=== PATIENT | female | born 1960 | race Caucasian/White ===

== ENCOUNTER → 2018-02-14 12:22 | Outpatient (CLI) | payer BC, SELFPAY ==
[2018-02-14 14:04] VITALS: PULSE 75; PULSE 80
== END ==
PROVIDERS: Family Provider Internal Medicine; PCP Internal Medicine; Visit Provider Internal Medicine
DX: E66.01 Morbid (severe) obesity due to excess calories (principal)
CPT/HCPCS: 94060; 94640; 94726; 94729

== ENCOUNTER → 2018-05-05 11:55 | Outpatient (CLI) | payer BC, SELFPAY ==
--- NOTE | 2018-05-05 12:00 | XR_ITS ---
XR chest 2V HISTORY: ITS.REASON: PERSISTANT COUGH, ATYPICAL CHEST PAIN ORDERING PHYSICIAN: Facundo Antonio PATIENT AGE: 58 years Technique: PA and lateral chest COMPARISON: None available FINDINGS: Lungs are well expanded and clear with nothing definitely acute The cardiomediastinal silhouette and pulmonary vascularity are within normal limits. The lungs are clear without infiltrates, suspicious nodules, or pleural effusions. Minor density at the apex of the heart is most likely anterior fat pad. No pleural effusions. No pneumothorax. No acute bony abnormalities. Minor anterior marginal osteophytes throughout the T-spine IMPRESSION: . Negative chest. Nothing definitely acute.
== END ==
PROVIDERS: PCP Internal Medicine; Visit Provider Internal Medicine
DX: R05 Cough (principal); R07.89 Other chest pain
CPT/HCPCS: 71046

== ENCOUNTER → 2018-09-01 10:24 | Outpatient (CLI) | payer BC, SELFPAY ==
--- NOTE | 2018-09-01 10:26 | XR_ITS ---
XR knee RT 4V Ordering Physician: Gabbi Sal MD Patient Age: 58 years: Female HISTORY: ITS.REASON: Rt knee pain Right knee pain. . Technique: Weightbearing AP, lateral and Knox views were performed as well as oblique. No previous studies for comparison Findings: Marked Narrowing medial compartment reflecting osteophytic changes here. Sclerosis on both sides the joint. With near [id number] appearance on AP standing images today. Tricompartmental marginal osteophytes most evident about medial and lateral compartment.. Upper normal joint fluid suprapatella bursa. Small flabella accessory ossicle posteriorly . Impression: Osteoarthritis right knee most pronounced and severe at the medial compartment
== END ==
PROVIDERS: PCP Internal Medicine; Visit Provider Orthopaedic Surgery
DX: M25.561 Pain in right knee (principal); G89.29 Other chronic pain
CPT/HCPCS: 73564

== ENCOUNTER → 2019-09-27 08:57 | Outpatient (CLI) | payer BC, SELFPAY ==
--- NOTE | 2019-09-27 09:00 | MM_ITS ---
PROCEDURE: MM DIG SCREENING MAMM BI W/CAD CLINICAL INDICATION: SCREENING There is a history of breast cancer patient's maternal aunt. COMPARISON: DMSB DIG MAMM-SCREEN PERLA from 11/04/2015 DMSB DIG MAMM-SCREEN PERLA W/CAD from 08/04/2017 TECHNIQUE: Standard CC and MLO images were obtained. Artie images were performed FINDINGS: Moderate diffuse scattered fibroglandular densities are seen throughout both breast and the findings of bilateral and symmetrical. There is a mole marker right breast. There is no new or suspicious lesion in either breast and no suspicious microcalcifications. Artie images were reviewed showing no abnormality. IMPRESSION: Moderate diffuse breast density with no suspicious lesions seen BI-RAD Category: 1 Negative FOLLOW-UP: 1YR 1 Year Follow-up (A letter has been sent to the patient regarding results of the study.) Dictated by: Dr. Dima Martinez MD 10/02/2019 08:[address] Dima Martinez MD in [place] 10/02/2019 08:56
== END ==
PROVIDERS: PCP Internal Medicine; Visit Provider Internal Medicine
DX: Z12.31 Encounter for screening mammogram for malignant neoplasm of breast (principal)
CPT/HCPCS: 77063; 77067

== ENCOUNTER → 2020-07-23 11:42 | Outpatient (CLI) | payer BC, SELFPAY | PROVIDERS: PCP Internal Medicine; Visit Provider Internal Medicine | DX: Z20.828 Contact with and (suspected) exposure to other viral communicable diseases (principal); U07.1 COVID-19 | CPT/HCPCS: U0003 ==

== ENCOUNTER 2020-09-11 16:00 | Outpatient (RCR) | payer BC, SELFPAY | END 2020-09-11 16:05 | disposition home or self-care (01) | LOC: PT 16:00 | PROVIDERS: PCP Internal Medicine; Visit Provider Physician Assistant | DX: M25.561 Pain in right knee (principal); Z96.651 Presence of right artificial knee joint | CPT/HCPCS: 97010; 97014; 97110; 97140; 97163; G0283 ==

== ENCOUNTER → 2021-05-20 09:41 | Outpatient (CLI) | payer BC, SELFPAY | PROVIDERS: PCP Internal Medicine; Visit Provider Internal Medicine | DX: Z20.822 Contact with and (suspected) exposure to COVID-19 (principal) | CPT/HCPCS: C9803; U0003; U0005 ==

== ENCOUNTER → 2021-06-11 10:39 | Outpatient (CLI) | payer BC, SELFPAY ==
--- NOTE | 2021-06-11 10:41 | MM_ITS ---
PROCEDURE INFORMATION: Exam: MG Bilateral Screening 3D Mammography Exam date and time: 06/11/2021 10:41 AM Age: 61 years old Clinical indication: Encounter for screening mammogram for malignant neoplasm of breast TECHNIQUE: Imaging protocol: Bilateral screening tomosynthesis and 2D mammography including computer-aided detection (CAD) when performed. COMPARISON: No relevant prior studies available. FINDINGS: MAMMOGRAPHY: Breast composition: The breast tissue is composed of scattered areas of fibroglandular density. Mass: None. Architectural distortion: None. Calcifications: No suspicious calcifications. Asymmetric density: None. Skin thickening: None. Axillary adenopathy: None. IMPRESSION: No mammographic evidence of malignancy. Annual screening is recommended unless otherwise clinically indicated. ASSESSMENT: BI-RADS Category 1: Negative
== END ==
PROVIDERS: PCP Internal Medicine; Visit Provider Internal Medicine
DX: Z12.31 Encounter for screening mammogram for malignant neoplasm of breast (principal)
CPT/HCPCS: 77063; 77067

== ENCOUNTER 2021-06-13 11:34 | Emergency (ER) | payer BC, SELFPAY ==
[2021-06-13 11:50] VITALS: BP 140/83; PULSE 654; RESP 16; TEMP 37.1; O2SAT 95; BMI 31.4
[2021-06-13 12:05] VITALS: BP 140/83; PULSE 65; RESP 18; TEMP 37.1
--- NOTE | 2021-06-13 12:14 | HMH.EDUTC ---
[facility] [place] Disposition Clinical Impression: Exposure to COVID-19 virus Sinusitis Qualifiers: Sinusitis location: unspecified location Chronicity: acute Recurrence: non-recurrent Qualified Code(s): J01.90 - Acute sinusitis, unspecified Disposition: Home, Self-Care Condition on Discharge: Good Instructions: DI for Sinusitis, Preventing the Spread of Coronavirus Discharge Instructions Additional Instructions: Drink plenty of fluids. Take tylenol or ibuprofen for pain or fever. Take the medications as directed. Follow up with your regular doctor. GO TO THE ER FOR ANY WORSENING SYMPTOMS Quarantine until you know the results of your covid-19 test. If it is positive, the health department should call you and give you further instructions about your length of Quarantine and other things. Notify your school or workplace of your results and follow their instructions regarding return to work/school. The cough medication (promethazine dm) will make you drowsy, so don't drive or operate heavy machinery after taking it. The tessalon perles should not make you drowsy, so you could take it during the day. Prescriptions: Promethazine/Dextromethorphan [Promethazine-Dm Syrup] 5 ml PO Q6HP PRN #240 ml PRN Reason: Cough Transmission Status: Received by [id number] predniSONE [Deltasone 10mg tablet] 10 mg PO BID 3 Days #6 tab Transmission Status: Received by [id number] Benzonatate [Tessalon Perle 100mg Cap] 100 mg PO TIDP PRN #30 cap PRN Reason: Cough Transmission Status: Received by [id number] Azithromycin [Z-Dwayne 250mg Tab*] 250 mg PO UD DOSE PK #6 tab Transmission Status: Received by [id number] Referrals: Facundo Antonio [Primary Care Provider] - Time of Disposition: 12:27 Medical Decision Making - Medical Records Medical records reviewed: No: I reviewed the patient's medical records. - Alexandre Inquiry Pt receiving controlled substance: No Vital Signs: 06/13/21 11:50 06/13/21 12:05 Temperature 98.7 F 98.7 F Temperature Source Oral Pulse Rate 65 Pulse Rate [Left] 654 H Respiratory Rate 16 18 Blood Pressure 140/83 Blood Pressure [Right Arm] 140/83 Blood Pressure Mean [Right Arm] 102 02 Sat by Pulse Oximetry 95 [facility] UTC HPI - General Stated complaint: exposure, covid test,cough Time Seen by Provider: 06/13/21 12:14 Mode of Arrival: Ambulatory Source of Information: Patient Limitations: No Limitations Description of Symptoms (Recalled from Triage Doc. by RN): PT WAS EXPOSED TWO DAYS AGO TO COVID. PT C/O COUGH HEENT Symptoms (Recalled from RN notes): No Resp Symptoms (Recalled from RN notes): Yes (COUGH) Skin Symptoms (Recalled from RN notes): No MS Symptoms (Recalled from RN notes): No Functional Status (Recalled from RN notes): NA - History of Present Illness Provider Complaint: She states that she has been coughing for the past 1 days. She has sinus drainage and sinus pressure also. She was exposed to covid-19 a few days ago. She has been fully vaccinated against covid-19. - Related Data Home Medications Medication Instructions Recorded Confirmed levothyroxine 125 mcg capsule 125 mcg PO DAILY 09/01/18 09/01/18 lisinopril 20 mg tablet 20 mg PO DAILY 09/01/18 09/01/18 omeprazole 40 mg capsule,delayed 40 mg PO DAILY 09/01/18 09/01/18 release Previous Rx's Medication Instructions Recorded Azithromycin [Z-Dwayne 250mg Tab*] 250 mg PO UD DOSE PK #6 tab 06/13/21 Benzonatate [Tessalon Perle 100mg 100 mg PO TIDP PRN #30 cap 06/13/21 Cap] Promethazine/Dextromethorphan 5 ml PO Q6HP PRN #240 ml 06/13/21 [Promethazine-Dm Syrup] predniSONE [Deltasone 10mg tablet] 10 mg PO BID 3 Days #6 tab 06/13/21 Allergies Allergy/AdvReac Type Severity Reaction Status Date / Time No Known Allergies Allergy Verified 09/01/18 11:14 - Worker's Comp Is this a Worker's Comp case?: No [facility] History - Hepatitis A Screen Drug use history?: No High risk s
== END 2021-06-13 12:36 | disposition home or self-care (01) ==
PROVIDERS: Emergency Provider Nurse Practitioner Family; PCP Internal Medicine
DX: J01.90 Acute sinusitis, unspecified (principal); Z20.822 Contact with and (suspected) exposure to COVID-19; I10 Essential (primary) hypertension; E07.9 Disorder of thyroid, unspecified; Z90.49 Acquired absence of other specified parts of digestive tract; Z98.84 Bariatric surgery status
CPT/HCPCS: 99202; C9803; G0463; U0003; U0005

== ENCOUNTER 2021-09-27 09:28 | Emergency (ER) | payer BC, SELFPAY ==
[2021-09-27 09:57] VITALS: BP 141/85; PULSE 64; RESP 18; TEMP 36.8; O2SAT 96; BMI 34.3
--- NOTE | 2021-09-27 10:12 | HMH.EDUTC ---
[facility] Disposition Clinical Impression: Corneal abrasion Qualifiers: Encounter type: initial encounter Laterality: left Qualified Code(s): S05.02XA - Injury of conjunctiva and corneal abrasion without foreign body, left eye, initial encounter Disposition: Home, Self-Care Condition on Discharge: Good Instructions: DI for Corneal Abrasion, Corneal Abrasion, Erythromycin Ophthalmic Additional Instructions: Use ointment in eye as advised in [facility] apply ribbon of medication in left eye every 6hours for 7 days Follow up with Eye Doctor if no improvement or immediately if any worsening of symptoms Return if needed Straight to ER if any life threatening symptoms Remove patch tomorrow Referrals: Facundo Antonio [Primary Care Provider] - [facility] [Other] Time of Disposition: 10:39 Medical Decision Making - Alexandre Inquiry Pt receiving controlled substance: No Alexandre was queried for this patient: No Vital Signs: 09/27/21 09:57 09/27/21 11:38 Temperature 98.2 F 98.2 F Temperature Source Oral Pulse Rate 64 Pulse Rate [Left] 64 Respiratory Rate 18 18 Blood Pressure 141/85 H Blood Pressure [Right Arm] 141/85 H Blood Pressure Mean [Right Arm] 103 02 Sat by Pulse Oximetry 96 Orders (Tests/Meds): ED MEDICATIONS Discontinued Medications Generic Name Dose Route Start Last Admin Trade Name Freq PRN Reason Stop Dose Admin Erythromycin 0.25 gm 09/27/21 13:00 Erythromycin Base 3.5 Gm Oint...G. OP 10/27/21 12:59 5XDAY MANNIE Eye Irrigation Solution 120 ml 09/27/21 11:25 09/27/21 11:28 Eye Wash Irrigation Soln 118ml Bottle OP 09/27/21 11:26 2 ml ONCE ONE Administration Tetracaine HCl 0 ml 09/27/21 11:25 09/27/21 11:29 Tetracaine 0.5% Opth Elizabeth 15ml OP 09/27/21 11:26 2 drops ONCE ONE Administration - Physician Consults Physician Consulted: Dr Federico Londono Time: 10:30 Comment/Response: Spoke with Dr Londono and informed him of finding he advised erythromycin ointment and patch eye until tomorrow then have her apply ointment in eye every 6hours and follow up in clinic if no improvement [facility] HPI - General Stated complaint: left eye pain Time Seen by Provider: 09/27/21 10:12 Mode of Arrival: Ambulatory Source of Information: Patient Limitations: No Limitations Description of Symptoms (Recalled from Triage Doc. by RN): pt c/o L eye pain since this am. HEENT Symptoms (Recalled from RN notes): Yes (L eye pain) Resp Symptoms (Recalled from RN notes): No Skin Symptoms (Recalled from RN notes): No MS Symptoms (Recalled from RN notes): No Functional Status (Recalled from RN notes): wnl - History of Present Illness Provider Complaint: Patient states that she woke up this morning and thinks she may have scratched her eye in her sleep States that she is having pain and watering in the eye and feels irritated and hurts state that she feels like it may be scratched - Related Data Home Medications Medication Instructions Recorded Confirmed levothyroxine 125 mcg capsule 125 mcg PO DAILY 09/01/18 09/01/18 lisinopril 20 mg tablet 20 mg PO DAILY 09/01/18 09/01/18 omeprazole 40 mg capsule,delayed 40 mg PO DAILY 09/01/18 09/01/18 release Previous Rx's Medication Instructions Recorded Azithromycin [Z-Dwayne 250mg Tab*] 250 mg PO UD DOSE PK #6 tab 06/13/21 Benzonatate [Tessalon Perle 100mg 100 mg PO TIDP PRN #30 cap 06/13/21 Cap] Promethazine/Dextromethorphan 5 ml PO Q6HP PRN #240 ml 06/13/21 [Promethazine-Dm Syrup] predniSONE [Deltasone 10mg tablet] 10 mg PO BID 3 Days #6 tab 06/13/21 Allergies Allergy/AdvReac Type Severity Reaction Status Date / Time No Known Allergies Allergy Verified 09/01/18 11:14 - Worker's Comp Is this a Worker's Comp case?: No [facility] History - Hepatitis A Screen Drug use history?: No High risk sexual behaviors?: No History of sexually transmitted infection?: No Currently employed?: No Childcare worker?: No Do you have indoor plum
[2021-09-27 11:38] VITALS: BP 141/85; PULSE 64; RESP 18; TEMP 36.8
== END 2021-09-27 11:41 | disposition home or self-care (01) ==
PROVIDERS: Emergency Provider Nurse Practitioner; PCP Internal Medicine
DX: S05.02XA Injury of conjunctiva and corneal abrasion without foreign body, left eye, initial encounter (principal); I10 Essential (primary) hypertension; Z87.891 Personal history of nicotine dependence; S00.202A Unspecified superficial injury of left eyelid and periocular area, initial encounter
CPT/HCPCS: 99202; G0463

== ENCOUNTER → 2021-12-08 15:30 | Outpatient (CLI) | payer BC, SELFPAY | PROVIDERS: PCP Internal Medicine; Visit Provider Internal Medicine | DX: Z20.822 Contact with and (suspected) exposure to COVID-19 (principal) | CPT/HCPCS: 87275; 87276; C9803; U0003; U0005 ==

== ENCOUNTER → 2022-06-21 07:43 | Outpatient (CLI) | payer BC, SELFPAY ==
--- NOTE | 2022-06-21 08:00 | MM_ITS ---
PROCEDURE INFORMATION: Exam: MG Bilateral Screening 3D Mammography Exam date and time: 06/21/2022 8:16 AM Age: 62 years old Clinical indication: Screening examination. No family history of breast cancer. TECHNIQUE: Imaging protocol: Bilateral Screening tomosynthesis and 2D mammography including computer-aided detection (CAD) when performed. COMPARISON: 1. MG MM DIG SCREENING MAMM BI W/CAD 06/11/2021 10:50 AM 2. MG MM DIG SCREENING MAMM BI W/CAD 09/27/2019 9:09 AM 3. MG DMSB DIG MAMM-SCREEN PERLA W/CAD 08/04/2017 4:25 PM 4. MG DMSB DIG MAMM-SCREEN PERLA 11/04/2015 4:25 PM FINDINGS: MAMMOGRAPHY: Breast composition: There are scattered areas of fibroglandular density. Mass: No suspicious mass. Architectural distortion: None. Calcifications: No suspicious calcifications. Asymmetric density: None. Skin thickening: None. Axillary adenopathy: None. IMPRESSION: No mammographic evidence of malignancy. Annual screening is recommended unless otherwise clinically indicated. ASSESSMENT: BI-RADS Category 1: Negative
[2022-06-21 08:38] LABS: Basophils # 0.1 K/mm3 (0-0.2); Basophils % 1.3 % (0.1-2.0); Eosinophils # 0.1 K/mm3 (0.0-0.4); Eosinophils % 2.9 % (0.1-12.0); Hematocrit 42.8 % (37.0-47.0); Hemoglobin 13.6 g/dL (12.2-16.2); Lymphocytes # 1.6 K/mm3 (0.7-4.5); Lymphocytes % 33.3 % (10-50); Mean Corpuscular HGB Conc 31.9 g/dL (31.8-35.4); Mean Corpuscular Hemoglobin 31.6 pg (27.0-31.2); Mean Corpuscular Volume 99.1 fl (81-99); Monocytes # 0.3 K/mm3 (0.1-1.0); Monocytes % 5.9 % (1.7-9.3); Neutrophils # 2.8 K/mm3 (1.8-7.8); Neutrophils % 56.6 % (37.0-80.0); Platelet Count 311 K/mm3 (142-424); Red Blood Count 4.32 M/mm3 (4.20-5.40); Red Cell Distribution Width 13.3 % (11.5-17.5); White Blood Count 4.9 K/mm3 (4.8-10.8)
[2022-06-21 09:21] LABS: Alanine Aminotransferase 17 U/L (12-78); Albumin Level 3.9 g/dl (3.5-5.0); Albumin/Globulin Ratio 1.5 (1.1-1.8); Alkaline Phosphatase 90 U/L (38-126); Anion Gap 10.5 mEq/L (5-15); Aspartate Amino Transferase 24 U/L (14-36); Bilirubin,Total 0.6 mg/dl (0.2-1.3); Blood Urea Nitrogen 16 mg/dl (7-17); Calcium 8.7 mg/dl (8.4-10.2); Carbon Dioxide 32 mmol/L (22.0-30.0); Chloride 102 mmol/L (98-107); Chol/HDL Ratio 2.7 (1-3.5); Cholesterol 217 mg/dl (140-200); Estimated Glomerular Filt Rate 85 ml/min (>60); GFR (African American) 103 ML/MIN (>60); Globulin 2.6 g/dL (1.3-3.2); Glucose 85 mg/dl (74-100); HDL Cholesterol 80 mg/dl (40-60); Potassium 4.5 mmoL/L (3.5-5.1); Sodium 140 mmol/L (136-145); Total Protein,Serum 6.5 g/dl (6.3-8.2); Triglycerides 47 mg/dl (30-150); VLDL Cholesterol 9 mg/dL (0-40)
[2022-06-21 09:32] LABS: Direct LDL Cholesterol 110.94 mg/dL (100-129)
[2022-06-21 09:39] LABS: 25-OH Vitamin D, Total 21.2 ng/mL (30-100)
[2022-06-21 10:10] LABS: Vitamin B12 939 pg/mL (239-931)
== END ==
PROVIDERS: PCP Internal Medicine; Visit Provider Internal Medicine
DX: Z12.31 Encounter for screening mammogram for malignant neoplasm of breast (principal); E03.9 Hypothyroidism, unspecified; E78.5 Hyperlipidemia, unspecified; I10 Essential (primary) hypertension; M15.0 Primary generalized (osteo)arthritis; E66.09 Other obesity due to excess calories; Z98.84 Bariatric surgery status
CPT/HCPCS: 36415; 77063; 77067; 80053; 80061; 82306; 82607; 84443; 85025

== ENCOUNTER → 2023-02-01 09:12 | Outpatient (POV) | payer BC, SELFPAY | PROVIDERS: Visit Provider Dermatology | DX: Z00.00 Encounter for general adult medical examination without abnormal findings (principal) ==

== ENCOUNTER 2023-02-08 08:16 | Day surgery (SDC) | payer BC, SELFPAY ==
[2023-02-07 10:51] VITALS: BMI 37.2
--- NOTE | 2023-02-08 09:00 | P.PN_ITS ---
[facility] Disclaimer: The information contained in this section may have been updated after the patient was seen, as this information can be updated by other users. Medical History HTN (hypertension) Hypothyroid Surgical History History of appendectomy History of cholecystectomy History of gastric surgery History of knee replacement Family History Other Family history of cancer Social History Smoking Status: Former smoker alcohol intake: never substance use type: denies use current occupational status: employed Travel in the last 8 weeks: None household members: friend(s) housing: house [facility] Anesthesia Checklist Patient Identification Patient Identification: Arm Band and Verbal (Name & ) Structural Data Admitted From: Home Planned Operative Procedure/s: Colonoscopy Consent for Planned Operative Procedure(s) Verified: Yes NPO Status Verified Time NPO: 00:00 Airway Assessment C-Spine Mobility Assessed: Yes TMJ Mobility Assessed: Yes Dentition: Good Dentition Neurological Assessment Level of Consciousness: Awake Hx Seizures: No Numbness or tingling in extremities: No Anesthesia Plan Anesthesia Risk discussed: Yes Anesthesia Plan: Verified ASA Class: II Anesthesia Type: MAC
[2023-02-08 09:01] VITALS: BP 143/72; PULSE 58; RESP 18; TEMP 36.8; O2SAT 97
--- NOTE | 2023-02-08 09:14 | HMH.SCOPE ---
Procedure: Date: 02/08/23 Patient Date of :: 1960 Procedure Performed:: Colonoscopy Indications:: Positive Cologuard Screening Performing Provider:: Tj Hunt MD Referring Provider:: Dr. Antonio Sedation:: Monitored anesthesia care Procedure:: After informed consent was obtained the patient was taken to the endoscopy suite. Sedation ensued after the patient was transferred to the left lateral decubitus position. Pulse, blood pressure, and oxygen saturation were monitored throughout the procedure. Digital rectal exam revealed no significant abnormality. The colonoscope was placed in position. The entire colon was evaluated. The colonoscope was carefully removed and the patient was transferred to recovery in stable condition. Please see findings and specimens below for detail. Findings:: Bowel preparation moderate to poor Hemorrhoidal cushions Sigmoid diverticulosis Significant sigmoid tortuosity Fairly severe spasticity/lack of relaxation Polyps (see specimens) Specimens:: Periappendiceal polyp (hot snare) Lobulated cecal polyp (hot snare) Very large complex lobulated pedunculated polyp of the hepatic flexure Recommendations:: Timing of repeat colonoscopy is pending pathology will likely be around 6 months with extended bowel preparation secondary to size/nature of polyps, recent positive Cologuard, tortuosity, spasticity/lack of relaxation, and moderate to poor bowel preparation. Complications:: No immediate Estimated blood obtained (mL): 1
[2023-02-08 10:02] VITALS: BP 74/49; PULSE 76; RESP 18; TEMP 36.2; O2SAT 88
[2023-02-08 10:12] VITALS: BP 113/53; PULSE 60; RESP 18; TEMP 36.2; O2SAT 98
[2023-02-08 10:22] VITALS: BP 110/69; PULSE 62; RESP 18; TEMP 36.2; O2SAT 98
[2023-02-08 10:32] VITALS: BP 130/79; PULSE 66; RESP 18; TEMP 36.2; O2SAT 99
[2023-02-08 11:00] VITALS: BP 142/83; PULSE 64; RESP 18; TEMP 36.2; O2SAT 100
== END 2023-02-08 11:00 | disposition home or self-care (01) ==
PROVIDERS: PCP Internal Medicine; Visit Provider Surgery
PROC: 0DJD8ZZ Inspection of Lower Intestinal Tract, Via Natural or Artificial Opening Endoscopic (ICD-10-PCS; CPT 45385; principal; 2023-02-08 09:30)
DX: R19.5 Other fecal abnormalities (principal); D12.0 Benign neoplasm of cecum; K57.30 Diverticulosis of large intestine without perforation or abscess without bleeding; Z79.899 Other long term (current) drug therapy
CPT/HCPCS: 45385; J2704

== ENCOUNTER → 2023-06-17 12:41 | Outpatient (CLI) | payer BC, SELFPAY ==
[2023-06-17 14:31] LABS: Basophils % 0.5 % (0.1-2.0); Eosinophils # 0.1 K/mm3 (0.0-0.4); Eosinophils % 2.4 % (0.1-12.0); Hematocrit 42.1 % (37.0-47.0); Hemoglobin 13.7 g/dL (12.2-16.2); Lymphocytes # 1.5 K/mm3 (0.7-4.5); Lymphocytes % 27.9 % (10-50); Mean Corpuscular HGB Conc 32.5 g/dL (31.8-35.4); Mean Corpuscular Hemoglobin 32.2 pg (27.0-31.2); Mean Corpuscular Volume 98.8 fl (81-99); Mean Platelet Volume 8.4 fl (7.4-10.4); Monocytes # 0.3 K/mm3 (0.1-1.0); Monocytes % 5.7 % (1.7-9.3); Neutrophils # 3.5 K/mm3 (1.8-7.8); Neutrophils % 63.5 % (37.0-80.0); Platelet Count 281 K/mm3 (142-424); Red Blood Count 4.26 M/mm3 (4.20-5.40); Red Cell Distribution Width 13.7 % (11.5-17.5); White Blood Count 5.4 K/mm3 (4.8-10.8)
[2023-06-17 14:54] LABS: Alanine Aminotransferase 19 U/L (12-78); Albumin/Globulin Ratio 1.5 (1.1-1.8); Alkaline Phosphatase 77 U/L (38-126); Anion Gap 10.4 mEq/L (5-15); Aspartate Amino Transferase 27 U/L (14-36); Bilirubin,Total 0.4 mg/dl (0.2-1.3); Blood Urea Nitrogen 13 mg/dl (7-17); Carbon Dioxide 31 mmol/L (22.0-30.0); Chloride 103 mmol/L (98-107); Chol/HDL Ratio 2.7 (1-3.5); Cholesterol 210 mg/dl (140-200); Estimated Glomerular Filt Rate 85 ml/min (>60); GFR (African American) 102 ML/MIN (>60); Globulin 2.7 g/dL (1.3-3.2); Glucose 82 mg/dl (74-100); HDL Cholesterol 77 mg/dl (40-60); Potassium 4.4 mmoL/L (3.5-5.1); Sodium 140 mmol/L (136-145); Total Protein,Serum 6.7 g/dl (6.3-8.2); Triglycerides 59 mg/dl (30-150); VLDL Cholesterol 12 mg/dL (0-40)
[2023-06-17 15:05] LABS: Direct LDL Cholesterol 109.62 mg/dL (100-129)
[2023-06-17 15:10] LABS: 25-OH Vitamin D, Total 37.6 ng/mL (30-100)
[2023-06-17 15:42] LABS: Vitamin B12 > 1000 pg/mL (239-931)
== END ==
PROVIDERS: PCP Internal Medicine; Visit Provider Internal Medicine
DX: I10 Essential (primary) hypertension (principal); M17.0 Bilateral primary osteoarthritis of knee; E03.9 Hypothyroidism, unspecified; E78.5 Hyperlipidemia, unspecified; Z68.38 Body mass index [BMI] 38.0-38.9, adult; Z87.891 Personal history of nicotine dependence
CPT/HCPCS: 80053; 80061; 82306; 82607; 85025

== ENCOUNTER → 2023-06-22 13:32 | Outpatient (CLI) | payer BC, SELFPAY ==
--- NOTE | 2023-06-22 13:35 | XR_ITS ---
FINAL REPORT CLINICAL HISTORY: COUGH,TOBACCO USE COMPARISON: 05/05/2018 FINDINGS: Two views of the chest were obtained. The heart size and pulmonary vascularity are within normal limits. The mediastinum is normal. No acute pulmonary abnormality is identified. There is no pneumothorax. The bony thorax is intact. IMPRESSION: No active cardiopulmonary disease. Reviewed, Interpreted and Dictated by Chris Currie III, MD Transcribed by Therese Singh Authenticated and [facility]
== END ==
PROVIDERS: PCP Internal Medicine; Visit Provider Internal Medicine
DX: R05.9 Cough, unspecified (principal); Z87.891 Personal history of nicotine dependence
CPT/HCPCS: 71046

== ENCOUNTER 2023-08-23 06:24 | Day surgery (SDC) | payer BC, SELFPAY ==
[2023-08-22 08:34] VITALS: BMI 37.2
[2023-08-23 06:34] VITALS: BP 157/79; PULSE 68; RESP 18; TEMP 36.4; O2SAT 98
--- NOTE | 2023-08-23 07:16 | P.PNANES_ITS ---
[facility] Disclaimer: The information contained in this section may have been updated after the patient was seen, as this information can be updated by other users. Medical History HTN (hypertension) Hypothyroid Surgical History History of appendectomy History of cholecystectomy History of colonoscopy History of gastric surgery History of knee replacement Family History Other Family history of cancer Social History Smoking Status: Former smoker alcohol intake: never substance use type: denies use current occupational status: employed Travel in the last 8 weeks: None household members: friend(s) housing: house caffeine: Yes [facility] Anesthesia Checklist Patient Identification Patient Identification: Arm Band Structural Data Admitted From: Home Planned Operative Procedure/s: Colonoscopy Consent for Planned Operative Procedure(s) Verified: Yes Verified Documents: Surgical Consent and History and Physical NPO Status Verified Time NPO: 00:00 Additional verifications Anesthesia Reactions: No Airway Assessment Mallampati Score:: Class II C-Spine Mobility Assessed: Yes TMJ Mobility Assessed: Yes Dentition: Good Dentition Neurological Assessment Level of Consciousness: Awake and Alert Anesthesia Plan Anesthesia Risk discussed: Yes Anesthesia Plan: Verified ASA Class: II Anesthesia Type: MAC
--- NOTE | 2023-08-23 07:21 | P.PCN_ITS ---
Procedure: Date: 08/23/23 Patient Date of :: 1960 Procedure Performed:: Colonoscopy Indications:: History of colon polyps History of positive Cologuard Colonoscopy in February 2023 (positive Cologuard) was somewhat complicated by moderate to poor bowel preparation, fairly significant tortuosity, and fairly severe spasticity/lack of relaxation. Hemorrhoidal cushions and sigmoid diverticulosis noted. Large complex adenomatous polyps of the periappendiceal region, cecum, and of the hepatic flexure excised. Performing Provider:: Tj Hunt MD Referring Provider:: . Sedation:: Monitored anesthesia care Procedure:: After informed consent was obtained the patient was taken to the endoscopy suite. Sedation ensued after the patient was transferred to the left lateral decubitus position. Pulse, blood pressure, and oxygen saturation were monitored throughout the procedure. Digital rectal exam revealed no significant abnormality. The colonoscope was placed in position. The entire colon was e valuated. The colonoscope was carefully removed and the patient was transferred to recovery in stable condition. Please see findings and specimens below for detail. Findings:: Bowel preparation poor Hemorrhoidal cushions Sigmoid diverticulosis Lobulated/pedunculated polyp at 25 cm Specimens:: Lobulated/pedunculated polyp at 25 cm (hot snare) Recommendations:: Follow-up pathology Short-term repeat colonoscopy warranted Gastroenterology consultation warranted secondary to persistent poor bowel preparation (short-term repeat colonoscopy deferred to the gastroenterology service). Complications:: No immediate Estimated blood obtained (mL): 1 Colonoscopy Component Colonoscopy Component Was a colonoscopy performed during today's procedure?: Yes Recommended follow up colonoscopy of at least 10 years?: No If no, follow up colonoscopy recommended in ___ years?: (See above) Reason for not recommending >/= 10 yr follow-up interval?: (See above)
[2023-08-23 07:26] VITALS: O2SAT 98
[2023-08-23 08:00] VITALS: BP 96/51; PULSE 67; RESP 18; TEMP 36.7; O2SAT 96
[2023-08-23 08:10] VITALS: BP 95/55; PULSE 65; RESP 18; O2SAT 97
[2023-08-23 08:20] VITALS: BP 110/56; PULSE 61; RESP 18; O2SAT 98
[2023-08-23 08:30] VITALS: BP 133/76; PULSE 62; RESP 18; O2SAT 99
== END 2023-08-23 08:31 | disposition home or self-care (01) ==
PROVIDERS: PCP Internal Medicine; Visit Provider Surgery
PROC: 0DJD8ZZ Inspection of Lower Intestinal Tract, Via Natural or Artificial Opening Endoscopic (ICD-10-PCS; CPT 45385; principal; 2023-08-23 07:30)
DX: Z12.11 Encounter for screening for malignant neoplasm of colon (principal); Z86.010 Personal history of colon polyps; Z91.199 Patient's noncompliance with other medical treatment and regimen due to unspecified reason; K57.30 Diverticulosis of large intestine without perforation or abscess without bleeding; D12.5 Benign neoplasm of sigmoid colon
CPT/HCPCS: 45385

== ENCOUNTER 2025-01-29 13:10 | Outpatient (CLI) | payer BC, SELFPAY ==
--- NOTE | 2025-01-29 13:13 | MM_ITS ---
PROCEDURE INFORMATION: Exam: MG Bilateral Screening 3D Mammography Exam date and time: 01/29/2025 1:34 PM Age: 64 years old Clinical indication: Screening examination TECHNIQUE: Imaging protocol: Bilateral Screening tomosynthesis and 2D mammography including computer-aided detection (CAD) when performed. COMPARISON: 1. MG MM DIG SCREENING MAMM BI W/CAD 06/21/2022 8:16 AM 2. MG MM DIG SCREENING MAMM BI W/CAD 06/11/2021 10:50 AM FINDINGS: MAMMOGRAPHY: Breast composition: There are scattered areas of fibroglandular density. Mass: No suspicious masses. Architectural distortion: None. Calcifications: No suspicious calcifications. Asymmetric density: None. Skin thickening: None. Axillary adenopathy: None. IMPRESSION: No mammographic evidence of malignancy. Annual screening is recommended unless otherwise clinically indicated. ASSESSMENT: BI-RADS Category 1: Negative.
== END 2025-01-29 23:59 | disposition home or self-care (01) ==
LOC: RAD 13:11
PROVIDERS: PCP Internal Medicine; Visit Provider Family Medicine
DX: Z12.31 Encounter for screening mammogram for malignant neoplasm of breast (principal); R92.323 Mammographic fibroglandular density, bilateral breasts
CPT/HCPCS: 77063; 77067